=== PATIENT | female | born 1930 | race Caucasian/White ===

== ENCOUNTER 2020-08-17 12:19 | Emergency (ER) | payer MEDICARE, OTHER ==
[2020-08-17 12:44] VITALS: BP 168/70; PULSE 62
--- NOTE | 2020-08-17 12:53 | EDM.PDOC ---
ED HPI GENERAL MEDICAL PROBLEM - General Chief Complaint: General Stated Complaint: FALL Time Seen by Provider: 08/17/20 12:33 Source of Information: Reports: Patient, Family History Limitations: Reports: No Limitations - History of Present Illness INITIAL COMMENTS - FREE TEXT/NARRATIVE: Kailyn is an 89 year old female presents today with right hip and groin pain and low back pain after a fall yesterday. Patient states she took an extra step when going down her flight of stairs yesterday as she "thought there was another one yet" and lost her balance and fell to the floor. She crawled back up the steps per self. No loss of consciousness. No headache. Does not believe she hit her head. Has been using a walker at home as has increased pain with full weight bearing. Grandson states "using it at about 20%". Admits to only pain with weight bearing, feels good when at rest. patient denies any chest pain, shortness of breath, nausea or vomiting. No pain elsewhere. Onset: Gradual Duration: Day(s): Location: Reports: Back, Lower Extremity, Right Quality: Reports: Ache Severity: Moderate Improves with: Reports: Rest Worsens with: Reports: Movement Context: Reports: Trauma Associated Symptoms: Reports: Weakness. Denies: Confusion, Chest Pain, Cough, Fever/Chills, Headaches, Loss of Appetite, Nausea/Vomiting, Shortness of Breath Lower Back Pain Score (Numeric/FACES): 7 - Related Data Allergies Allergy/AdvReac Type Severity Reaction Status Date / Time Penicillins Allergy Rash Verified 08/17/20 12:44 Home Meds: Home Meds Aspirin [Halfprin] 81 mg PO DAILY 09/15/15 [History] Potassium Chloride [Klor-Con 10] 10 meq PO DAILY 09/15/15 [History] Triamterene/Hydrochlorothiazid [Triamterene-HCTZ 75-50 MG] 37.5 mg PO DAILY 09/15/15 [History] Vit C/E/Zn/Coppr/Lutein/Zeaxan [Preservision Areds 2 Softgel] 1 cap PO BID 09/15/15 [History] Red Yeast Rice 600 mg PO BID 09/23/15 [History] Past Medical History HEENT History: Reports: Cataract Cardiovascular History: Reports: Pacemaker Genitourinary History: Reports: None [employer] History: Reports: Musculoskeletal History: Reports: Other (See Below) Other Musculoskeletal History: spinal stenosis Hematologic History: Reports: Anemia Dermatologic History: Reports: Eczema - Past Surgical History HEENT Surgical History: Reports: Cataract Surgery GI Surgical History: Reports: Appendectomy, Cholecystectomy, Colonoscopy, Polypectomy Female Surgical History: Reports: Hysterectomy Musculoskeletal Surgical History: Reports: Other (See Below) Other Musculoskeletal Surgeries/Procedures:: surgery to correct spinal stenosis, bunions removed on bilat feet Social & Family History - Family History Oncologic: Reports: Other (See Below) - Tobacco Use Tobacco Use Status *Q: Unknown Ever Used Tobacco - Living Situation & Occupation Living situation: Reports: , with Family ED ROS GENERAL - Review of Systems Review Of Systems: See Below Constitutional: Reports: Weakness. Denies: Fever, Chills, Malaise, Fatigue, Decreased Appetite HEENT: Denies: Ear Pain, Sinus Problem, Throat Pain, Vertigo Respiratory: Denies: Shortness of Breath, Cough Cardiovascular: Denies: Chest Pain, Edema, Lightheadedness Endocrine: Denies: Fatigue GI/Abdominal: Denies: Abdominal Pain, Constipation, Diarrhea, Nausea, Vomiting : Reports: No Symptoms Musculoskeletal: Reports: Back Pain Skin: Reports: Bruising Neurological: Reports: Weakness ED EXAM, GENERAL - Physical Exam Exam: See Below Exam Limited By: No Limitations General Appearance: Alert, WD/WN, No Apparent Distress Ears: Normal External Exam, Normal TMs Nose: Normal Inspection, Normal Mucosa, No Blood Throat/Mouth: Normal Inspection, Normal Oropharynx Head: Normocephalic Neck: Normal Inspection, Supple, Non-Tender Respiratory/Chest: No Respiratory Distress, Lungs Clear, Normal Breath Sounds Cardiovascular: Regular Rate, Rhythm, No Edema GI/Abdominal: Normal Bowel Sounds, Soft, Non-Tender Extremities: Limited Range of Motion (right hip; pelvis/groin and right SI region is tender with palpation) Neurological: Alert, Oriented Skin Exam: Warm, Dry Course - Vital Signs Last Recorded V/S: Last Vital Signs Temp 97.9 F 08/17/20 12:41 Pulse 62 08/17/20 12:41 Resp 18 08/17/20 12:41 BP 168/70 H 08/17/20 12:41 Pulse Ox 96 08/17/20 12:41 - Orders/Labs/Meds Orders: Active Orders 24 hr Category Date Time Status Hip Min 2V or 3V w Pelvis Rt [CR] Stat Exams 08/17/20 12:33 Ordered Pelvis wo Cont [CT] Stat Exams 08/17/20 12:47 Ordered - Re-Assessments/Exams Free Text/Narrative Re-Assessment/Exam: 08/17/20 12:55 Pelvic xray concerning for pubic rami fracture. Will CT for better evaluation of pelvis. 08/17/20 13:43 CT confirms inferior pubic rami fracture, nondisplaced. Discussed held with patient and grandson in regards to admission versus home care. Grandson does live with them, prepares meals. Patient does have walker and pain only with weight bearing so does want to try at home. Patient advised to weight bear as tolerated, rest, minimal activity, no steps. Era as needed for severe pain, ES tylenol for pain. Departure - Departure Time of Disposition: 13:44 Disposition: Home, Self-Care 01 Condition: Fair Clinical Impression: Inferior pubic ramus fracture Qualifiers: Fracture type: closed Laterality: right - Discharge Information *PRESCRIPTION DRUG MONITORING PROGRAM REVIEWED*: No *COPY OF PRESCRIPTION DRUG MONITORING REPORT IN PATIENT ERMIAS: No Instructions: Simple Pelvic Fracture, Adult Forms: ED Department Discharge Additional Instructions: 1. Rest 2. Minimize activity 3. Weight baring as tolerated 4. Use walker 5. Tylenol for pain, norco for every 6 hours for more severe pain 6. Follow up for recheck with Dr. Jones in one week Sepsis Event Note (ED) - Evaluation Sepsis Screening Result: No Definite Risk - Focused Exam Vital Signs: Vital Signs Temp Pulse Resp BP Pulse Ox 08/17/20 12:41 97.9 F 62 18 168/70 H 96 - My Orders Last 24 Hours: My Active Orders 08/17/20 12:33 Hip Min 2V or 3V w Pelvis Rt [CR] Stat 08/17/20 12:47 Pelvis wo Cont [CT] Stat - Assessment/Plan Last 24 Hours: My Active Orders 08/17/20 12:33 Hip Min 2V or 3V w Pelvis Rt [CR] Stat 08/17/20 12:47 Pelvis wo Cont [CT] Stat
== END 2020-08-17 13:54 | disposition home or self-care (01) ==
LOC: CC.ED 12:19 → SUPCPDRO 12:19 → CC.ED 13:54
DX: S32.591A Other specified fracture of right pubis, initial encounter for closed fracture (principal); Z88.0 Allergy status to penicillin; Z79.82 Long term (current) use of aspirin; W10.9XXA Fall (on) (from) unspecified stairs and steps, initial encounter
CPT/HCPCS: 72192; 99284-25